=== PATIENT | male | born 1990 ===

== ENCOUNTER 2017-08-01 15:55 | Emergency (ER) | payer BC ==
[2017-08-01 16:05] VITALS: BP 126/75; PULSE 58; RESP 18; TEMP 98; O2SAT 97
--- NOTE | 2017-08-01 16:18 | C.PDOC ---
History Of Present Illness 26yo male, presents to ED for evaluation of bilateral eye redness and itchiness , present for the past 2 days. Patient states symptoms were initially present in his right eye and then moved to the left. He denies any contact lens use or glasses use; also denies any foreign body sensations, trauma to the eyes or vision changes. He offers no other complaints. Time Seen by Provider: 08/01/17 16:10 Chief Complaint (Nursing): Eye Problem History Per: Patient History/Exam Limitations: no limitations Onset/Duration Of Symptoms: Days Current Symptoms Are (Timing): Still Present Injury To Eye?: No Associated Symptoms: denies: Decreased Vision, FB Sensation Past Medical History Reviewed: Historical Data, Nursing Documentation, Vital Signs Vital Signs: Last Vital Signs Temp 98 F 08/01/17 16:02 Pulse 58 L 08/01/17 16:02 Resp 18 08/01/17 16:02 BP 126/75 08/01/17 16:02 Pulse Ox 97 08/01/17 16:31 - Medical History PMH: No Chronic Diseases Surgical History: No Surg Hx Family History: States: No Known Family Hx, Unknown Family Hx - Social History Hx Alcohol Use: Yes Hx Substance Use: No - Immunization History Hx Tetanus Toxoid Vaccination: No Hx Influenza Vaccination: No Hx Pneumococcal Vaccination: No Review Of Systems Except As Marked, All Systems Reviewed And Found Negative. Eyes: Positive for: Redness. Negative for: Pain, Vision Change Physical Exam - Physical Exam Appears: Non-toxic, No Acute Distress Skin: Normal Color, Warm, No Rash Head: Atraumatic, Normacephalic Eye(s): bilateral: PERRL, EOMI, Other (moderate conjunctival injection noted; no foreign body noted upon lid inversion) Ear(s): Bilateral: Normal Oral Mucosa: Moist Neurological/Psych: Oriented x3, Normal Motor, Normal Sensation Gait: Steady ED Course And Treatment O2 Sat by Pulse Oximetry: 97 (RA) Pulse Ox Interpretation: Normal Disposition - Disposition Referrals: Isael Fischer MD [Staff Provider] - Disposition: HOME/ ROUTINE Disposition Time: 16:16 Condition: GOOD Additional Instructions: Follow up with Eye doctor within 1-2 days without. Return if worsened. Prescriptions: Moxifloxacin HCl [Vigamox 3 ml] 1 drop OU TID #1 gissell Instructions: Conjunctivitis (ED) Forms: [employer] ([employer]) - Clinical Impression Clinical Impression: Conjunctivitis - PA / HEALTH AND NUTRITION SPECIALIST / Resident Statement MD/DO has reviewed & agrees with the documentation as recorded. - Scribe Statement The provider has reviewed the documentation as recorded by the Laurence Bhat Provider Attestation: All medical record entries made by the Laurence were at my direction and personally dictated by me. I have reviewed the chart and agree that the record accurately reflects my personal performance of the history, physical exam, medical decision making, and the department course for this patient. I have also personally directed, reviewed, and agree with the discharge instructions and disposition.
== END 2017-08-01 16:38 | disposition home or self-care (01) ==
LOC: C.ER 15:55
DX: H10.9 Unspecified conjunctivitis (principal)

== ENCOUNTER 2017-12-20 10:00 | Observation (INO) | payer BC ==
[2017-12-20 10:05] VITALS: BMI 35.6
--- NOTE | 2017-12-20 12:26 | RAD ---
PROCEDURE: Radiographs of the pelvis. HISTORY: foreign body in right buttock COMPARISON: None. FINDINGS: BONES: Pelvic Bones: Unremarkable. Hips: Grossly unremarkable. JOINTS: Sacroiliac Joints: Unremarkable. Pubic Symphysis: Unremarkable. OTHER FINDINGS: Linear radiopaque foreign body in right gluteal subcutaneous soft tissues. Likely a needle. IMPRESSION: Foreign body in right gluteal soft tissues. Otherwise unremarkable examination.
--- NOTE | 2017-12-20 12:29 | CP.PCM.CON ---
<Adam Franks - Last Filed: 12/20/17 12:29> Past Patient History - Past Social History Smoking Status: Never Smoked - PSYCHIATRIC Hx Substance Use: No - SURGICAL HISTORY Hx Surgeries: No - ANESTHESIA Hx Anesthesia: No Meds Allergies/Adverse Reactions: Allergies Allergy/AdvReac Type Severity Reaction Status Date / Time No Known Allergies Allergy Verified 12/20/17 10:04 Results - Vital Signs Recent Vital Signs: Last Vital Signs Temp 97.8 F 12/20/17 10:05 Pulse 85 12/20/17 10:05 Resp 18 12/20/17 10:05 BP 117/74 12/20/17 10:05 Pulse Ox 98 12/20/17 10:05 <Slim Hyde - Last Filed: 12/20/17 12:47> Meds - Medications Medications: Current Medications Lactated Ringer's (Lactated Ringer's) 1,000 mls @ 100 mls/hr IV .Q10H NEHEMIAH Piperacillin Sod/Tazobactam Sod (Zosyn 3.375 Gm Iv Premix) 3.375 gm in 50 mls @ 100 mls/hr IVPB Q6H NEHEMIAH PRN Reason: Protocol Results - Vital Signs Recent Vital Signs: Last Vital Signs Temp 97.8 F 12/20/17 10:05 Pulse 85 12/20/17 10:05 Resp 18 12/20/17 10:05 BP 117/74 12/20/17 10:05 Pulse Ox 98 12/20/17 10:05
[2017-12-20] MEDS ORDERED: Lactated Ringer's 1,000 ML IV SCH (12:45)
--- NOTE | 2017-12-20 12:54 | C.PDOC ---
History Of Present Illness 27 y/o make presents to the ER foe evaluation of a needle which is present in his right buttock.Patient states that he was in the [place] on when he sat on needle on a car seat and the needle lodged into his skin.He had X-Rays done in ER which showed a foreign body .The physician in the [facility] [place] was not able to remove the foreign body so he decides to come to the ER for removal. Time Seen by Provider: 12/20/17 10:16 Chief Complaint (Nursing): Foreign Body History Per: Patient History/Exam Limitations: no limitations Onset/Duration Of Symptoms: Days Current Symptoms Are (Timing): Still Present Severity: Moderate Past Medical History Reviewed: Historical Data, Nursing Documentation, Vital Signs Vital Signs: Last Vital Signs Temp 98.1 F 12/20/17 14:16 Pulse 78 12/20/17 14:16 Resp 18 12/20/17 14:16 BP 122/71 12/20/17 14:16 Pulse Ox 98 12/20/17 14:28 - Medical History PMH: No Chronic Diseases Surgical History: No Surg Hx Family History: States: No Known Family Hx - Social History Hx Alcohol Use: No Hx Substance Use: No - Immunization History Hx Tetanus Toxoid Vaccination: No Hx Influenza Vaccination: No Hx Pneumococcal Vaccination: No Review Of Systems Except As Marked, All Systems Reviewed And Found Negative. Constitutional: Negative for: Fever, Chills Skin: Positive for: Other (foreign body) Physical Exam - Physical Exam Appears: Non-toxic Skin: Normal Color, Warm, Dry Head: Atraumatic, Normacephalic Eye(s): bilateral: Normal Inspection Nose: Normal Oral Mucosa: Moist Neck: Supple Chest: Symmetrical Extremity: Tenderness (mild tenderness to right gluteal region) Neurological/Psych: Oriented x3, Normal Speech, Normal Motor, Normal Sensation ED Course And Treatment - Laboratory Results Result Diagrams: 12/20/17 14:02 O2 Sat by Pulse Oximetry: 98 (RA) Pulse Ox Interpretation: Normal - Other Rad X-Ray- Pelvis X-Ray: Viewed By Me, Read By Radiologist Interpretation: PROCEDURE: Radiographs of the pelvis. HISTORY: foreign body in right buttock. COMPARISON: None. FINDINGS: BONES: Pelvic Bones: Unremarkable. Hips: Grossly unremarkable. JOINTS: Sacroiliac Joints: Unremarkable. Pubic Symphysis: Unremarkable. OTHER FINDINGS: Linear radiopaque foreign body in right gluteal subcutaneous soft tissues. Likely a needle. IMPRESSION: Foreign body in right gluteal soft tissues. Otherwise unremarkable examination. Medical Decision Making Medical Decision Making: Plan: --X-Ray- Pelvis Updates: X-Ray shows needle in right buttock. Case d/ c with , surgeon.Patient will be admitted to observation under Dr. Jackson for foreign body removal. Patient will be taken to OR. Disposition Discussed With .: Carmen Jackson Doctor Will See Patient In The: ED Counseled Patient/Family Regarding: Studies Performed, Diagnosis - Disposition Disposition: HOSPITALIZED Disposition Time: 12:53 Condition: FAIR - Clinical Impression Clinical Impression: Foreign body - Scribe Statement The provider has reviewed the documentation as recorded by the Keyannaibe Jaky Hoyt Provider Attestation: All medical record entries made by the Keyannaibe were at my direction and personally dictated by me. I have reviewed the chart and agree that the record accurately reflects my personal performance of the history, physical exam, medical decision making, and the department course for this patient. I have also personally directed, reviewed, and agree with the discharge instructions and disposition.
[2017-12-20] MEDS ORDERED: Piperacill/Tazo 3.375gm in Dex 3.375 GM/50 ML BAG IVPB SCH (13:00)
--- NOTE | 2017-12-20 13:21 | CP.PCM.HP ---
History of Present Illness - History of Present Illness History of Present Illness: Surgery H&P. Dr. Jackson 27yo M with no PMHx here for evaluation of gluteal pain. Patient reports that he accidentally sat down on a needle 3 weeks ago. He was in his car and forgot the he had a needle laying on the seat. When he sat down, the needle entered and snapped into his right butt cheek. He states that he has been having discomfort that has been worse over the past week. He does have foreign body sensation over the right gluteal region. Denies any F/C. No N/V/D. No CP/SOB. PMHx: Denies PSHx: denies Family Hx: non-contributory Social Hx: Denies Tobacco use, denies ETOH use, denies illicit drugs NKDA Present on Admission - Present on Admission Any Indicators Present on Admission: No Review of Systems - Review of Systems All systems: reviewed and no additional remarkable complaints except - Constitutional Constitutional: absent: Chills, Fever - Cardiovascular Cardiovascular: absent: Chest Pain, Dyspnea - Respiratory Respiratory: absent: Cough, Dyspnea - Gastrointestinal Gastrointestinal: absent: Abdominal Pain, Nausea, Vomiting - Genitourinary Genitourinary: absent: Dysuria - Integumentary Additional comments: foreign body sensation Past Patient History - Past Social History Smoking Status: Never Smoked - PSYCHIATRIC Hx Substance Use: No - SURGICAL HISTORY Hx Surgeries: No - ANESTHESIA Hx Anesthesia: No Meds Allergies/Adverse Reactions: Allergies Allergy/AdvReac Type Severity Reaction Status Date / Time No Known Allergies Allergy Verified 12/20/17 10:04 Physical Exam - Constitutional Appears: Well - Head Exam Head Exam: ATRAUMATIC, NORMAL INSPECTION, NORMOCEPHALIC - Eye Exam Eye Exam: EOMI, Normal appearance - ENT Exam ENT Exam: Mucous Membranes Moist - Respiratory Exam Respiratory Exam: NORMAL BREATHING PATTERN. absent: Accessory Muscle Use, Respiratory Distress - Cardiovascular Exam Cardiovascular Exam: RRR. absent: JVD - GI/Abdominal Exam GI & Abdominal Exam: Soft. absent: Distended, Firm, Guarding, Tenderness - Extremities Exam Additional comments: right gluteal mild localized tenderness to palpation. patient reports foreign body sensation No erythema, no induration - Neurological Exam Neurological exam: Alert, Oriented x3 - Psychiatric Exam Psychiatric exam: Normal Affect, Normal Mood - Skin Skin Exam: Dry, Intact, Normal Color, Warm Results - Vital Signs Recent Vital Signs: Last Vital Signs Temp 97.8 F 12/20/17 10:05 Pulse 85 12/20/17 10:05 Resp 18 12/20/17 10:05 BP 117/74 12/20/17 10:05 Pulse Ox 98 12/20/17 12:54 - Labs Result Diagrams: 12/20/17 14:02 Assessment & Plan - Assessment and Plan (Free Text) Assessment: 27yo M with right gluteal foreign body -X-ray noted Plan: - To OR for foreign body removal - NPO - IVF - Abx Further recs as per Dr. Manuel Franks PGY1 surgery pager: [phone]
[2017-12-20 14:10] LABS: HEMOGLOBIN 16.3 g/dL (12.0-18.0); MEAN CELL VOLUME 87.4 fL (80.0-94.0); MEAN CORPUSCULAR HGB CONC 34.3 g/dL (33.0-37.0); RBC 5.46 Mil/uL (4.40-5.90); RED CELL DISTRIBUTION WIDTH 12.9 % (11.5-14.5); WHITE BLOOD COUNT 4.1 K/uL (4.8-10.8)
[2017-12-20 14:15] LABS: PROTHROMBIN TIME 11.6 SECONDS (9.7-12.2)
[2017-12-20 15:22] LABS: ALB/GLOB RATIO 1.2 (1.0-2.1); ALBUMIN 4.2 g/dL (3.5-5.0); ALT/SGPT 58 U/L (21-72); AST/SGOT 38 U/L (17-59); BLOOD UREA NITROGEN 12 mg/dL (9-20); GFR AFRICAN-AMERICAN > 60; GFR NON-AFRICAN AMERICAN > 60
[2017-12-20] MEDS ORDERED: Lidocaine Hydrochloride 0 ML INJ ONE (17:19)
[2017-12-20] MEDS ORDERED: Lidocaine Hydrochloride 20 ML INJ ONE (17:29)
[2017-12-20] MEDS ORDERED: Midazolam 2 MG/2 ML VIAL ONE ×2 (17:39→17:55)
[2017-12-20] MEDS ORDERED: Lactated Ringer's 1,000 ML IV ONE (18:30)
[2017-12-20] MEDS ORDERED: HYDROmorphone 0.5 mg/0.5 ml ISec IVP PRN (18:31)
--- NOTE | 2017-12-20 18:31 | PCM.SURG1 ---
Surgeon's Initial Post Op Note - Surgeon's Notes Surgeon: Dr. Jackson Manager Risk: Tiny PGY1 Type of Anesthesia: IV Sedation, Local Pre-Operative Diagnosis: Foreign Body Right Gluteus Operative Findings: see operative report. Small needle tip removed. Post-Operative Diagnosis: same Operation Performed: Removal of Foreign body from right gluteus Specimen/Specimens Removed: Foreign body (needle) Estimated Blood Loss: EBL {In ML}: 2 Blood Products Given: N/A Drains Used: No Drains Post-Op Condition: Good Date of Surgery/Procedure: 12/20/17 Time of Surgery/Procedure: 18:31
[2017-12-20 19:54] LABS: HEPATITIS B SURFACE AG Negative (NEGATIVE)
[2017-12-20 19:59] LABS: HEPATITIS A IGM NEGATIVE (NEGATIVE); HEPATITIS B CORE AB NEGATIVE (NEGATIVE)
[2017-12-20 20:11] LABS: HEPATITIS C ANTIBODY NEGATIVE (NEGATIVE)
[2017-12-20 20:27] VITALS: BP 113/51; PULSE 57; RESP 14; TEMP 98.5; O2SAT 98
--- NOTE | 2017-12-21 04:01 | OP ---
PROCEDURE DATE: 12/20/2017 SURGEON: Carmen Jackson MD [employer] OPERATOR HELPER: Dr. Franks. TYPE OF ANESTHESIA: Local with IV sedation. ANESTHESIA ADMINISTERED BY: Dr. Ortez. PREOPERATIVE DIAGNOSIS: Foreign body right buttock. POSTOPERATIVE DIAGNOSIS: Foreign body right buttock. PROCEDURE: Removal of foreign body from the right buttock. DESCRIPTION OF OPERATION: The patient was placed on the operating table in the prone position. He received light intravenous sedation and with monitoring by Anesthesia, the right buttock was prepped and draped in the usual sterile manner. The patient gave a history of having a needle which broke off in the buttock, and in fact, a foreign body with the appearance of a needle was visualized on x-ray. C-arm was used to locate the position of the needle which in an AP direction was noted overlying approximately the right femoral neck, and on the lateral position, was noted to be approximately 3 cm deep to the skin surface. The needle was oriented in a somewhat vertical orientation and after infiltration with 1% lidocaine, a transverse incision was made over the position of the needle as seen by C-arm, taken down through the skin and subcutaneous tissue. The C-arm was then switched to a lateral position and using a clamp, the tissues were dissected down to the depth of the needle, and with some exploration, the needle was palpated deep to the subcutaneous tissue probably within the substance of the gluteus musculature. The needle was grasped with the clamp and because of the depth, additional local anesthetic was infiltrated and the incision was extended upward making a vertical extension to make a cruciate incision and this allowed the needle to be extracted. The specimen was approximately 3 quarters of an inch in length and appeared consistent with a sawing needle. Specimen was taken for pathology. The wound was irrigated and the C-arm was then again used in both an oblique and AP direction to ensure that no additional foreign bodies were visualized. It appears that the foreign body has been completely removed. Closure was performed with interrupted sutures of 4-0 nylon and a dry sterile dressing was applied. The patient tolerated the procedure well and transferred to recovery room in stable condition. Estimated blood loss for the procedure was 2 mL. Carmen Jackson MD
--- NOTE | 2017-12-21 15:03 | RAD ---
PROCEDURE: Intraoperative fluoroscopy HISTORY: FOREIGN BODY RT BUTTOCKS COMPARISON: Not available TECHNIQUE: Intraoperative fluoroscopy was provided to a cyst in soft tissue foreign body removal. Total time of fluoroscopy was 73.1 seconds. FINDINGS: Four fluoroscopic spot films are submitted. IMPRESSION: Fluoroscopy provided.
== END 2017-12-20 21:38 | disposition home or self-care (01) ==
LOC: C.ER 10:00 → C.9E 12:46 → C.6T 13:15
PROVIDERS: ADMIT Specialist; ATTEND Specialist
DX: S30.850A Superficial foreign body of lower back and pelvis, initial encounter (principal); X58.XXXA Exposure to other specified factors, initial encounter; M79.5 Residual foreign body in soft tissue
CPT/HCPCS: 10120; 36415; 72170; 80053; 80074; 85027; 85610; 85730; 86592; 86703; 86706; 88300; 96365; 99284; G0378; J1170; J2250; J2543; J3010; J7120